=== PATIENT | female | born 1960 | race Caucasian/White ===

== ENCOUNTER → 2017-04-28 | Day surgery (SDC) | payer BC ==
--- NOTE | 2017-04-29 21:42 | OP ---
DATE OF PROCEDURE: 04/28/2017 PROCEDURE: High resolution esophageal motility study. PREOPERATIVE DIAGNOSES: Dysphagia and odynophagia following fundoplication. OPERATIVE NOTE: The manometry probe was placed by Jazmyne Gallegos RN. The patient performed 10 with swallows, which were evaluated. The upper esophageal sphincter was hypertensive and remained tense t hroughout the study to the range of 130 to 140 mmHg. The esophagus had no peristaltic contractions. There was simultaneous pressurization to the 40 mmHg range based on the color chart with the h igh resolution manometry. The lower esophageal sphincter remained tense and relaxed at best to the 2 0-30 mmHg range; however, pressures did reach up above 60 mmHg at times. IMPRESSION: These findings are consistent with achalasia.
== END ==
LOC: ENDO/OP 07:38
PROVIDERS: ATTEND Internal Medicine Gastroenterology
PROC: 4A0B7BZ Measurement of Gastrointestinal Pressure, Via Natural or Artificial Opening (ICD-10-PCS; principal; 2017-04-28)
DX: K22.0 Achalasia of cardia (principal)
CPT/HCPCS: 91010

== ENCOUNTER 2017-05-07 19:22 | Emergency (ER) | payer BC ==
[~2017-05-07 19:22] MED LIST: ISOVUE-370 76%-LOCM 1 ML ONE
[2017-05-07 20:49] LABS: #Eosinphils 0.2 thou/uL (0.0-0.7); #Monocytes 0.5 thou/uL (0.11-0.59); #Neutrophils 1.5 thou/uL (1.40-6.50); %Basophils 0.9 % (0.0-1.0); %Eosinophils 4.1 % (0.0-10.0); %Lymphocytes 47.9 % (21.0-51.0); %Monocytes 10.9 % (0.0-10.0); Hematocrit 40.4 % (36.0-47.0); Mean Platelet Volume 7.8 fL (7.4-10.4); Red Blood Cell (RBC) Count 4.61 mill/uL (4.20-5.40); White Blood Cell (WBC) Count 4.2 thou/uL (4.8-10.8)
[2017-05-07 21:11] LABS: ALT (SGPT) 258 U/L (8-55); AST (SGOT) 43 U/L (5-34); Alkaline Phosphatase 140 U/L (40-150); Anion Gap 12 mmol/L (10-20); BUN (Urea Nitrogen) 8 mg/dL (9.8-20.1); Bilirubin, Total 0.7 mg/dL (0.2-1.2); Calc. Creatinine Clearance 0 mL/min (70-130); Calcium 9.7 mg/dL (7.8-10.44); Carbon Dioxide 24 mmol/L (22-29); Chloride 109 mmol/L (98-107); Estimated GFR-MDRD 76; Globulin 3.2 g/dL (2.4-3.5); Lipase 52 U/L (8-78); Magnesium 2.5 mg/dL (1.6-2.6); Protein, Total 7.4 g/dL (6.0-8.3)
[2017-05-07] MEDS ORDERED: Fentanyl 100 MCG/2 ML VIAL ONE ×2 (21:12→23:25)
[2017-05-07 22:10] LABS: Bilirubin Negative (Negative); Blood, Urine Negative (Negative); Glucose, Urine (Dipstick) Negative (Negative); Ketone, Urine Negative (Negative); Nitrite Negative (Negative); Protein, Urine (Dipstick) Negative (Neg-Trace); Urobilinogen 0.2 mg/dL (0.2-1.0)
[2017-05-07] MEDS ORDERED: Ketorolac Tromethamine 30 MG/ML VIAL ONE (23:25)
--- NOTE | 2017-05-07 23:34 | CT ---
CONTRAST ENHANCED CT IMAGES ABDOMEN AND PELVIS 05/07/17 IV contrast was given. Oral contrast was not given. This does decrease the detection of pathology. The patient has had numerous surgeries with abdominal pain. The lung bases are unremarkable. Pockets of free air is seen beneath the right hemidiaphragm adjacent to the left hepatic lobe. No other definite areas of free intraperitoneal air seen. There is an area of fatty replacement in the medial aspect of the left hepatic lobe. The spleen is unremarkable. The pancreas is unremarkable. The gallbladder is not visualized. Adrenal glands are unremarkable. The kidneys are unremarkable. A tiny angiomyolipoma seen in the upper laborer wrecking and salvaging ior aspect of the left kidney. No evidence of periaortic lymphadenopathy is seen. The SMA, celiac and inferior mesentery arteries ar ea visualized. There is some heterogeneity seen in the superior mesenteric vein concerning for some s uperior mesenteric venous clot which extends into the portal vein. The patient appears to have had so me right lower quadrant surgery with staple lines present. The uterus is surgically absent. A small a mount of free pelvic fluid is seen. The colon demonstrates no obvious evidence of abnormalities. L5-S 1 intervertebral disc degenerative changes seen. IMPRESSION: 1. Area of free intraperitoneal air beneath the right hemidiaphragm. 2. Filling defect is seen in the portal vein and superior mesenteric veins concerning for possib le portal and SMV clot. POS: CRISTIANA
[2017-05-07 23:38] LABS: PTT 35.4 SEC (22.9-36.1); Prothrombin Time 14.6 SEC (12.0-14.7)
[2017-05-08] MEDS ORDERED: Enoxaparin Sodium 60 MG/0.6 ML SYRINGE ONE (00:35)
== END 2017-05-08 01:20 | disposition short-term general hospital (02) ==
LOC: ERS 19:22
DX: I81 Portal vein thrombosis (principal); K55.069 Acute infarction of intestine, part and extent unspecified; E03.9 Hypothyroidism, unspecified; G43.909 Migraine, unspecified, not intractable, without status migrainosus; J45.909 Unspecified asthma, uncomplicated; Z79.899 Other long term (current) drug therapy
CPT/HCPCS: 36415; 74177; 80053; 81001; 83690; 83735; 85025; 85610; 85730; 96361; 96372; 96374; 96375; 96376; J1650; J1885; J3010

== ENCOUNTER 2017-07-21 09:45 | Outpatient (CLI) | payer OTHER | END 2017-07-21 09:46 | disposition home or self-care (01) | LOC: DTY/OP 09:45 | PROVIDERS: ATTEND Surgery | DX: K22.0 Achalasia of cardia (principal); Z98.890 Other specified postprocedural states | CPT/HCPCS: 97802 ==

== ENCOUNTER 2025-03-19 15:03 | Emergency (ER) | payer OTHER ==
[~2025-03-19 15:03] MED LIST changes: -ISOVUE-370 76%-LOCM 1 ML ONE; +Iopamidol-370 76% 500 ML MDV (1 ML CHARGE) ONE
[2025-03-19 16:14] LABS: #Basophils 0.04 10x3/uL (0.0-0.2); #Eosinophils 0.23 10x3/uL (0.0-0.7); #Monocytes 0.50 10x3/uL (0.11-0.59); #Neutrophils 3.21 10x3/uL (1.40-6.50); %Basophils 0.6 % (0.0-1.0); %Eosinophils 3.3 % (0.0-10.0); %Lymphocytes 43.6 % (21.0-51.0); %Monocytes 7.1 % (0.0-10.0); %Neutrophils 45.3 % (42.0-75.0); Hematocrit 42.4 % (36.0-47.0); Hemoglobin 14.1 g/dL (12.0-16.0); Mean Corpuscular Hemoglobin 28.1 pg (27.0-31.0); Mean Corpuscular Volume 84.6 fL (78.0-98.0); Platelet Count 250 10x3/uL (130-400); Red Blood Cell (RBC) Count 5.01 mill/uL (4.20-5.40); White Blood Cell (WBC) Count 7.07 10x3/uL (4.8-10.8)
[2025-03-19 16:27] LABS: INR-International Normal Ratio 1.1; PTT 32.8 sec (22.9-36.1); Prothrombin Time 14.0 sec (12.0-14.7)
[2025-03-19 16:28] LABS: Magnesium 1.9 mg/dL (1.6-2.6)
[2025-03-19 16:29] LABS: ALT (SGPT) 34 U/L (Less than 34); AST (SGOT) 36 U/L (11-34); Acetaminophen Less than 10 mcg/mL (Less than 10); Albumin 4.3 g/dL (3.1-4.5); Alkaline Phosphatase 113 U/L (40-110); Anion Gap 14 mmol/L (10-20); BUN (Urea Nitrogen) 14 mg/dL (9.8-20.1); Bilirubin, Total 0.3 mg/dL (0.3-1.2); Calc. Creatinine Clearance 0 mL/min (70-130); Calcium 9.7 mg/dL (7.8-10.44); Carbon Dioxide 26 mmol/L (23-31); Chloride 109 mmol/L (98-107); Globulin 3.3 g/dL (2.4-3.5); Glucose 84 mg/dL (80-115); Potassium 3.6 mmol/L (3.5-5.1); Salicylate Less than 8.0 mg/dL (Less than 8.0); Sodium 145 mmol/L (136-145)
[2025-03-19 17:22] LABS: Bacteria/HPF None Seen HPF (None Seen); CAUTI Indications for Culture Acute Hematuria; Glucose, Urine (Dipstick) Normal (Negative); Leukocyte Negative Leu/uL (Negative); Protein, Urine (Dipstick) Negative (Neg-Trace); RBC/HPF 0-3 HPF (0-3); Specific Gravity, Urine 1.024 (1.002-1.036); WBC/HPF 0-3 HPF (0-3)
[2025-03-19 17:31] LABS: Cocaine Metabolite Screen Negative (Negative); THC/Cannabinoid Screen Negative (Negative); Tricyclic Screen Negative (Negative)
[2025-03-19 17:33] LABS: Urine Culture Reflex No No
[2025-03-19] MEDS ORDERED: Ketorolac Tromethamine 30 MG (1 mL) VIAL ONE (17:36)
[2025-03-19] MEDS ORDERED: diphenhydrAMINE 50 MG/ML VIAL ONE (17:36)
[2025-03-19] MEDS ORDERED: Magnesium 2 GM/50 ML BAG (IN WATER) ONE (17:36)
[2025-03-19] MEDS ORDERED: Prochlorperazine 10 MG/2 ML VIAL ONE (17:36)
== END 2025-03-19 20:43 | disposition home or self-care (01) ==
LOC: ERS 15:03
DX: R51.9 Headache, unspecified (principal); R20.2 Paresthesia of skin; R29.701 NIHSS score 1; E03.9 Hypothyroidism, unspecified; J45.909 Unspecified asthma, uncomplicated; Z79.899 Other long term (current) drug therapy
CPT/HCPCS: 70450; 70496; 70498; 80053; 80306; 80307; 81001; 83735; 85025; 85610; 85730; 93005; 94760; 96365; 96375; J0780; J1200; J1885; J3475; Q9967